=== PATIENT | male | born 1990 | race Hispanic/Latino ===

== ENCOUNTER 2022-09-04 15:08 | Emergency (ER) | payer SELFPAY ==
[~2022-09-04] VITALS: Ht 188 cm; Wt 101.2 kg
[2022-09-04 15:22] VITALS: BP 133/88
== END 2022-09-04 16:10 | disposition home or self-care (01) ==
LOC: EDH 15:08
DX: S39.011A Strain of muscle, fascia and tendon of abdomen, initial encounter (principal); X50.1XXA Overexertion from prolonged static or awkward postures, initial encounter; Y93.66 Activity, soccer; Y92.89 Other specified places as the place of occurrence of the external cause; Y99.8 Other external cause status
CPT/HCPCS: 99281